=== PATIENT | female | born 1975 | race Caucasian/White ===

== ENCOUNTER 2023-12-21 09:07 | Outpatient (CLI) | payer BC | END 2023-12-21 23:59 | disposition home or self-care (01) | LOC: RAD 09:07 | PROVIDERS: ATTEND Family Medicine | DX: M25.561 Pain in right knee (principal); M25.562 Pain in left knee; M79.642 Pain in left hand; M79.641 Pain in right hand; R07.89 Other chest pain | CPT/HCPCS: 71046; 73130; 73564 ==